=== PATIENT | female | born 1980 | race Caucasian/White ===

== ENCOUNTER 2019-08-28 10:37 | Emergency (ER) | payer OTHER ==
--- NOTE | 2019-08-28 10:49 | EDM.PDOC ---
ED HPI GENERAL MEDICAL PROBLEM - General Chief Complaint: Lower Extremity Injury/Pain Stated Complaint: LEFT ANKLE PAIN Time Seen by Provider: 08/28/19 10:49 Source of Information: Reports: Patient, Family History Limitations: Reports: No Limitations - History of Present Illness INITIAL COMMENTS - FREE TEXT/NARRATIVE: Today, shortly before visit, while walking her dog on a leash, dog became excited and circled her causing the leash to tie/wrap at legs. She denies any other injury stating she was near the step, only tipping over a few feet catching herself with her hands/arms. She denies striking her head or any other part of her body. Speaks of chronically worsening foot pain bilateral. 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 ED EXAM, GENERAL - Physical Exam Exam: See Below Free Text/Narrative:: Alert oriented x3 in no acute distress. HEENT is negative for discharge or deformity. Neck is soft supple no limitation to range of motion. Thorax demonstrates no respiratory distress, no wheezes no crackles are audible. Cardiac regular with pulse correlating. No injury or deformity is noted to the upper extremities, nor hands. Right lower extremity is free of any injury or complaint to examination. Left lower extremity shows no involvement of the proximal and mid tib-fib region. There is tenderness to the distal tibia with no crepitus. Mild radiation into the lateral foot to the fifth metatarsal. Mild tenderness to the medial malleolus and to the mid foot at the arch. There is also noted tenderness to the heel consistent with plantar fasciitis. Capillary refill is intact flexion/tension of the toes does cause some discomfort to the arch. There is no obvious abrasion contusion or ecchymosis forming with mild edema at the malleolus laterally. Course - Vital Signs Last Recorded V/S: Last Vital Signs Temp 35.8 C L 08/28/19 10:37 Pulse 82 08/28/19 10:37 Resp 18 08/28/19 10:37 BP 103/74 08/28/19 10:37 Pulse Ox 95 08/28/19 10:37 - Orders/Labs/Meds Orders: Active Orders 24 hr Category Date Time Status Ankle Min 3V Lt [CR] Stat Exams 08/28/19 10:52 Ordered Foot 2V Lt [CR] Stat Exams 08/28/19 10:51 Ordered Departure - Departure Time of Disposition: 11:48 Disposition: Home, Self-Care 01 Condition: Good Clinical Impression: Ankle sprain, Heel spur, Pes planus of left foot - Discharge Information *PRESCRIPTION DRUG MONITORING PROGRAM REVIEWED*: Not Applicable *COPY OF PRESCRIPTION DRUG MONITORING REPORT IN PATIENT JL: Not Applicable Instructions: Ankle Sprain Referrals: Rajni Thurston MD [Primary Care Provider] - Forms: ED Department Discharge Additional Instructions: Ice elevate as much as possible today. Lace up boot for support the next 7-10 days. Consider podiatry for foot pain, flat feet, heel spurs, and arch support. Recheck with your clinic as needed. Sepsis Event Note (ED) - Evaluation Sepsis Screening Result: No Definite Risk - Focused Exam Vital Signs: Vital Signs Temp Pulse Resp BP Pulse Ox 08/28/19 10:37 35.8 C L 82 18 103/74 95 - Problem List & Annotations (1) Ankle sprain SNOMED Code(s): 14150655 Code(s): S93.409A - SPRAIN OF UNSP LIGAMENT OF UNSPECIFIED ANKLE, INIT ENCNTR Status: Acute Priority: High Current Visit: Yes Qualifiers: Encounter type: initial encounter (2) Heel spur SNOMED Code(s): 61458986 Code(s): M77.30 - CALCANEAL SPUR, UNSPECIFIED FOOT Status: Chronic Priority: Medium Current Visit: Yes Qualifiers: Laterality: left Qualified Code(s): M77.32 - Calcaneal spur, left foot (3) Pes planus of left foot SNOMED Code(s): 63996254 Code(s): M21.42 - FLAT FOOT [PES PLANUS] (ACQUIRED), LEFT FOOT Status: Chronic Priority: Medium Current Visit: Yes - Problem List Review Problem List Initiated/Reviewed/Updated: Yes - My Orders Last 24 Hours: My Active Orders 08/28/19 10:51 Foot 2V Lt [CR] Stat 08/28/19 10:52 Ankle Min 3V Lt [CR] Stat - Assessment/Plan Last 24 Hours: My Active Orders 08/28/19 10:51 Foot 2V Lt [CR] Stat 08/28/19 10:52 Ankle Min 3V Lt [CR] Stat Plan: Ice elevate as much as possible today. Lace up boot for support the next 7-10 days. Consider podiatry for foot pain, flat feet, heel spurs, and arch support. Recheck with your clinic as needed.
--- NOTE | 2019-08-28 11:37 | CR ---
[id number] RAD/RAD Foot Left 2V; [id number] RAD/RAD Ankle Left 3V Min EXAM: RAD Ankle Left 3V Min, RAD Foot Left 2V INDICATION: FALL, SWELLING AND PAIN COMPARISON: None. DISCUSSION: Small plantar calcaneal spur. 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 Soft tissue swelling in the ankle and distal leg. No acute fracture is identified. IMPRESSION: 1. Soft tissue swelling. No acute fracture is identified. Ilya Martinez MD 08/28/19 [id number] Thank you for allowing us to participate in the care of your patient.
== END 2019-08-28 11:45 | disposition home or self-care (01) ==
LOC: KA.ED 10:37
DX: S93.402A Sprain of unspecified ligament of left ankle, initial encounter (principal); M77.32 Calcaneal spur, left foot; M21.42 Flat foot [pes planus] (acquired), left foot; X50.9XXA Other and unspecified overexertion or strenuous movements or postures, initial encounter
CPT/HCPCS: 73610-LT; 73620-LT; 99283-25

== ENCOUNTER 2024-11-01 06:58 | Day surgery (SDC) | payer BC ==
[2024-11-01] MEDS ORDERED: Sodium Chloride 0.9% 10 ML Syringe FLUSH PRN (07:00)
[2024-11-01] MEDS ORDERED: Propofol 200 MG/20 ML SDV ONE (07:53)
[2024-11-01] MEDS ORDERED: Midazolam 1 MG/ML 2 ML SDV ONE (07:53)
== END 2024-11-01 10:15 | disposition home or self-care (01) ==
LOC: KA.SDS 06:58
PROVIDERS: ATTEND Family Medicine
DX: K29.80 Duodenitis without bleeding (principal); K31.7 Polyp of stomach and duodenum; E11.9 Type 2 diabetes mellitus without complications; K21.9 Gastro-esophageal reflux disease without esophagitis; Z79.84 Long term (current) use of oral hypoglycemic drugs; Z79.899 Other long term (current) drug therapy
CPT/HCPCS: 00731; 82947; 88305; J1596; J2250; J2704; J7030